=== PATIENT | female | born 1930 | race Asian ===

== ENCOUNTER 2016-09-14 08:35 | Inpatient (IN) | payer MEDICARE, MEDICAID ==
[~2016-09-14] VITALS: Ht 152.4 cm; Wt 45.4 kg
[~2016-09-14 08:35] MED LIST: UNOBMED
[2016-09-14 09:00] VITALS: BP 160/70
[2016-09-14] MEDS ORDERED: SERTRALINE HCL25 MG ORAL (09:59)
[2016-09-14] MEDS ORDERED: DONEPEZIL HCL5 M2 ORAL (09:59)
[2016-09-14 10:08] LABS: BASOPHILS % (AUTO) 0.6 % (0.0-2.0); LYMPHOCYTES % (AUTO) 19.8 % (20.0-45.0); MEAN CORPUSCULAR HEMOGLOBIN 32.1 PG (27.0-31.0); MEAN CORPUSCULAR HGB CONC 32.5 G/DL (32.0-36.0); MEAN CORPUSCULAR VOLUME 99 FL (80-99); MEAN PLATELET VOLUME 8.7 FL (6.5-10.1); MONOCYTES % (AUTO) 8.8 % (1.0-10.0); NEUTROPHILS % (AUTO) 68.8 % (45.0-75.0); PLATELET COUNT 179 K/UL (150-450); RED BLOOD COUNT 4.25 M/UL (4.20-5.40); RED CELL DISTRIBUTION WIDTH 12.4 % (11.6-14.8); WHITE BLOOD COUNT 5.9 K/UL (4.8-10.8)
[2016-09-14 10:17] LABS: ALANINE AMINOTRANSFERASE 17 U/L (3-33); ALBUMIN/GLOBULIN RATIO 1.1 (1.0-2.7); ANION GAP 14 (5-15); ASPARTATE AMINO TRANSFERASE 26 U/L (5-40); CALCIUM 9.7 mg/dL (8.6-10.2); CARBON DIOXIDE 25 mEQ/L (20-30); CHLORIDE 102 mEQ/L (98-107); CREATININE 0.9 mg/dL (0.5-0.9); HEMOLYSIS 6; LIPASE 49 U/L (< 60); POTASSIUM 4.2 mEQ/L (3.4-4.9); SODIUM 141 mEQ/L (135-145); TOTAL PROTEIN 7.1 g/dL (6.6-8.7)
[2016-09-14 10:19] LABS: TROPONIN I < 0.30 ng/mL (<=0.30)
[2016-09-14 10:34] LABS: APPEARANCE,URINE CLEAR; KETONES,URINE NEGATIVE (NEGATIVE); LEUKOCYTE ESTERASE ,URINE 1+ (NEGATIVE); NITRITE,URINE NEGATIVE (NEGATIVE); PH,URINE 7 (4.5-8.0); PROTEIN,URINE NEGATIVE (NEGATIVE); UROBILINOGEN,URINE NORMAL MG/DL (0.0-1.0)
[2016-09-14 10:49] LABS: BACTERIA,URINE FEW /HPF; RBC,URINE 0-2 /HPF (0 - 2); SQUAMOUS EPITHELIAL CELL,UR FEW /LPF (NONE/OCC)
[2016-09-14 11:22] VITALS: BP 184/74
[2016-09-14 13:16] VITALS: BP 180/100
--- NOTE | 2016-09-14 14:46 | Emergency Room Report ---
History of Present Illness General Chief Complaint: Diarrhea Source: Patient Present Illness HPI 86-year-old female presents ED for evaluation. Daughter at bedside states that the last 2 days patient been having vomiting and diarrhea. States that patient has poor appetite and feels weak. Denies any fevers or chills. Denies any abdominal pain. Denies any recent antibiotic use. Denies any recent travel. No other aggravating or relieving factors. Denies any other associated symptoms Allergies: Uncoded Allergies: SEASONAL (Allergy, Unknown, 04/19/14) Patient History Past Medical History: HTN Past Surgical History: none Pertinent Family History: none Social History: Denies: alcohol use, drug use, smoking Now: No Immunizations: UTD Reviewed Nursing Documentation: PMH: Agreed, PSxH: Agreed Nursing Documentation-PMH Past Medical History: No History, Except For Hx Hypertension: Yes Review of Systems All Other Systems: negative except mentioned in HPI Physical Exam Vital Signs Date Time Temp Pulse Resp B/P Pulse Ox O2 Delivery O2 Flow Rate FiO2 09/14/16 08:44 98.2 66 16 160/70 98 Room Air Sp02 EP Interpretation: reviewed, normal General Appearance: no apparent distress, alert, GCS 15, non-toxic, thin Head: normocephalic, atraumatic Eyes: bilateral eye PERRL, bilateral eye normal inspection ENT: hearing grossly normal, normal pharynx, no angioedema, normal voice Neck: full range of motion, supple/symm/no masses Respiratory: chest non-tender, lungs clear, normal breath sounds, speaking full sentences Cardiovascular #1: regular rate, rhythm, no edema Cardiovascular #2: 2+ carotid (R), 2+ carotid (L), 2+ radial (R), 2+ radial (L) , 2+ dorsalis pedis (R), 2+ dorsalis pedis (L) Gastrointestinal: normal bowel sounds, non tender, soft, non-distended, no guarding, no rebound Rectal: deferred Genitourinary: normal inspection, no CVA tenderness Musculoskeletal: back normal, gait/station normal, normal range of motion, non- tender Neurologic: alert, oriented x3, responsive, motor strength/tone normal, sensory intact, speech normal Psychiatric: judgement/insight normal, memory normal, mood/affect normal, no suicidal/homicidal ideation Reflexes: 3+ bicep (R), 3+ bicep (L), 3+ tricep (R), 3+ tricep (L), 3+ knee (R) , 3+ knee (L) Skin: normal color, no rash, warm/dry, well hydrated Lymphatic: no adenopathy Medical Decision Making Diagnostic Impression: Primary Impression: Gastroenteritis Additional Impression: Weakness ER Course Hospital Course 86-year-old female presenting to ED with generalized weakness, poor appetite, vomiting with diarrhea Differential diagnoses include: Pneumonia, UTI, sepsis, dehydration, WI/ unstable angina, failure to thrive Clinical course Patient placed on stretcher. 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 After initial history and physical, I ordered labs, IV fluids, UA Labs - no leukocytosis, hb/hct stable, electrolytes ok, UA negative Daughter is concerned because patient remains week with poor appetite with persistent diarrhea here in ER. C diff and stool culture sent Case discussed with Dr Pappas and they agreed to admit patient to their service for further care and support I feel this is a highly complex case requiring extensive working including EKG/ Rhythm strip, Xray/CT/US, Blood/urine lab work, repeat exams while in ED, and administration of strong opiates/narcotics for pain control, admission to hospital or close patient follow up. Diagnosis - gastroenteritis, weakness Patient admitted to floor in serious condition Labs Test 09/14/16 09:40 09/14/16 10:20 White Blood Count 5.9 K/UL (4.8-10.8) Red Blood Count 4.25 M/UL (4.20-5.40) Hemoglobin 13.7 G/DL (12.0-16.0) Hematocrit 42.0 % (37.0-47.0) Mean Corpuscular Volume 99 FL (80-99) Mean Corpuscular Hemoglobin 32.1 PG (27.0-31.0) Mean Corpuscular Hemoglobin Concent 32.5 G/DL (32.0-36.0) Red Cell Distribution Width 12.4 % (11.6-14.8) Platelet Count 179 K/UL (150-450) Mean Platelet Volume 8.7 FL (6.5-10.1) Neutrophils (%) (Auto) 68.8 % (45.0-75.0) Lymphocytes (%) (Auto) 19.8 % (20.0-45.0) Monocytes (%) (Auto) 8.8 % (1.0-10.0) Eosinophils (%) (Auto) 2.0 % (0.0-3.0) Basophils (%) (Auto) 0.6 % (0.0-2.0) Sodium Level 141 mEQ/L (135-145) Potassium Level 4.2 mEQ/L (3.4-4.9) Chloride Level 102 mEQ/L (98-107) Carbon Dioxide Level 25 mEQ/L (20-30) Anion Gap 14 (5-15) Blood Urea Nitrogen 26 mg/dL (7-23) Creatinine 0.9 mg/dL (0.5-0.9) Estimat Glomerular Filtration Rate mL/min (>60) Glucose Level 107 mg/dL (74-106) Calcium Level 9.7 mg/dL (8.6-10.2) Total Bilirubin 0.6 mg/dL (0.0-1.2) Aspartate Amino Transf (AST/SGOT) 26 U/L (5-40) Alanine Aminotransferase (ALT/SGPT) 17 U/L (3-33) Alkaline Phosphatase 73 U/L (35-104) Troponin I < 0.30 ng/mL (<=0.30) Total Protein 7.1 g/dL (6.6-8.7) Albumin 3.8 g/dL (3.5-5.2) Globulin 3.3 g/dL Albumin/Globulin Ratio 1.1 (1.0-2.7) Lipase 49 U/L (< 60) Urine Color Pale yellow Urine Appearance Clear Urine pH 7 (4.5-8.0) Urine Specific [place] 1.015 (1.005-1.035) Urine Protein Negative (NEGATIVE) Urine Glucose (UA) Negative (NEGATIVE) Urine Ketones Negative (NEGATIVE) Urine Occult Blood Negative (NEGATIVE) Urine Nitrite Negative (NEGATIVE) Urine Bilirubin Negative (NEGATIVE) Urine Urobilinogen Normal MG/DL (0.0-1.0) Urine Leukocyte Esterase 1+ (NEGATIVE) Urine RBC 0-2 /HPF (0 - 2) Urine WBC 2-4 /HPF (0 - 2) Urine Squamous Epithelial Cells Few /LPF (NONE/OCC) Urine Bacteria Few /HPF (NONE) Last Vital Signs Date Time Temp Pulse Resp B/P Pulse Ox O2 Delivery O2 Flow Rate FiO2 09/14/16 13:29 180/100 4/9/17 13:16 56 16 98 Room Air 09/14/16 08:44 98.2 Status: unchanged Disposition: ADMITTED INPATIENT Condition: Serious Referrals: NON PHYSICIAN (PCP) RIGO SUAREZ M.D. Sep 14, 2016 14:46
[2016-09-14 14:53] VITALS: BP 139/68
[2016-09-14 16:28] VITALS: BP 130/61
[2016-09-14 20:00] VITALS: BP 130/58
[2016-09-14] MEDS ORDERED: LATANOPROST2.5 ML BOTH EYES (22:36)
--- NOTE | 2016-09-14 23:57 | Internal Med Progress Note ---
Subjective Physician Name Percy Herndon Attending Physician Percy Herndon M.D. Current Medications Medications (Trade) Dose Ordered Sig/Armando Route PRN Reason Start Time Stop Time Status Last Admin Dose Admin Acetaminophen (Tylenol) 650 mg Q4H PRN ORAL Mild Pain (Pain Scale 1-3) 09/14/16 12:30 10/14/16 12:29 Dextrose (Dextrose 50%) STAT PRN IV Hypoglycemia 09/14/16 12:30 10/14/16 12:29 Donepezil HCl (Aricept) 5 mg DAILY ORAL 09/15/16 09:00 10/15/16 08:59 Ondansetron HCl (Zofran) 4 mg Q6H PRN IVP Nausea & Vomiting 09/14/16 12:30 10/14/16 12:29 Sertraline HCl (Zoloft) 25 mg DAILY ORAL 09/15/16 09:00 10/15/16 08:59 Sodium Chloride (Sodium Chloride 1000ml bag) 1,000 ml @ 75 mls/hr [id number] IVLG 09/14/16 14:00 10/14/16 13:59 09/14/16 17:01 Allergies: Uncoded Allergies: SEASONAL (Allergy, Unknown, 04/19/14) Objective Last Vital Signs Date Time Temp Pulse Resp B/P Pulse Ox O2 Delivery O2 Flow Rate FiO2 09/14/16 20:00 97.1 57 19 130/58 100 Room Air Laboratory Tests Test 09/14/16 09:40 09/14/16 10:20 White Blood Count 5.9 K/UL (4.8-10.8) Red Blood Count 4.25 M/UL (4.20-5.40) Hemoglobin 13.7 G/DL (12.0-16.0) Hematocrit 42.0 % (37.0-47.0) Mean Corpuscular Volume 99 FL (80-99) Mean Corpuscular Hemoglobin 32.1 PG (27.0-31.0) H Mean Corpuscular Hemoglobin Concent 32.5 G/DL (32.0-36.0) Red Cell Distribution Width 12.4 % (11.6-14.8) Platelet Count 179 K/UL (150-450) Mean Platelet Volume 8.7 FL (6.5-10.1) Neutrophils (%) (Auto) 68.8 % (45.0-75.0) Lymphocytes (%) (Auto) 19.8 % (20.0-45.0) L Monocytes (%) (Auto) 8.8 % (1.0-10.0) Eosinophils (%) (Auto) 2.0 % (0.0-3.0) Basophils (%) (Auto) 0.6 % (0.0-2.0) Sodium Level 141 mEQ/L (135-145) Potassium Level 4.2 mEQ/L (3.4-4.9) Chloride Level 102 mEQ/L (98-107) Carbon Dioxide Level 25 mEQ/L (20-30) Anion Gap 14 (5-15) Blood Urea Nitrogen 26 mg/dL (7-23) H Creatinine 0.9 mg/dL (0.5-0.9) Estimat Glomerular Filtration Rate mL/min (>60) Glucose Level 107 mg/dL (74-106) H Calcium Level 9.7 mg/dL (8.6-10.2) Total Bilirubin 0.6 mg/dL (0.0-1.2) Aspartate Amino Transf (AST/SGOT) 26 U/L (5-40) Alanine Aminotransferase (ALT/SGPT) 17 U/L (3-33) Alkaline Phosphatase 73 U/L (35-104) Troponin I < 0.30 ng/mL (<=0.30) Total Protein 7.1 g/dL (6.6-8.7) Albumin 3.8 g/dL (3.5-5.2) Globulin 3.3 g/dL Albumin/Globulin Ratio 1.1 (1.0-2.7) Lipase 49 U/L (< 60) Urine Color Pale yellow Urine Appearance Clear Urine pH 7 (4.5-8.0) Urine Specific [place] 1.015 (1.005-1.035) Urine Protein Negative (NEGATIVE) Urine Glucose (UA) Negative (NEGATIVE) Urine Ketones Negative (NEGATIVE) Urine Occult Blood Negative (NEGATIVE) Urine Nitrite Negative (NEGATIVE) Urine Bilirubin Negative (NEGATIVE) Urine Urobilinogen Normal MG/DL (0.0-1.0) Urine Leukocyte Esterase 1+ (NEGATIVE) H Urine RBC 0-2 /HPF (0 - 2) Urine WBC 2-4 /HPF (0 - 2) Urine Squamous Epithelial Cells Few /LPF (NONE/OCC) Urine Bacteria Few /HPF (NONE) PERCY HERNDON M.D. Sep 14, 2016 23:57
[2016-09-15] VITALS: BP 113/55
--- NOTE | 2016-09-15 02:46 | History & Physical ---
History and Physical History & Physicial H&P dictated [id number] AMANDA HERNDON M.D. Sep 15, 2016 02:46
[2016-09-15 03:55] VITALS: BP 136/59
--- NOTE | 2016-09-15 07:09 | History and Physical Report ---
DATE OF ADMISSION: 09/14/2016 HISTORY OF PRESENT ILLNESS: This is an 86-year-old [place] Sor[place] female, who presents to the emergency room with worsening diarrhea. She states that she has nausea and vomiting. She has been become more weak. She has poor appetite and had 26 pounds weight loss that was unintentional over the last two years. She is very dehydrated and not eating or drinking much. She reports very loose diarrhea. She has a history of colon cancer status post colectomy after which she had some diarrhea. PAST MEDICAL HISTORY: Includes hypertension and colon cancer status post colectomy. PAST SURGICAL HISTORY: Colectomy for colon cancer. ALLERGIES: None. MEDICATIONS: Reviewed in [employer]. SOCIAL HISTORY: The patient does not drink, smoke alcohol, or use any drugs. FAMILY HISTORY: Noncontributory. REVIEW OF SYSTEMS: A 12-point review of systems is negative except for pertinent positives as mentioned above. PHYSICAL EXAMINATION: VITAL SIGNS: Temperature 98.2 degrees, pulse 66, respiratory rate 16, blood pressure 160/70, and O2 saturation 98%. GENERAL: The patient is in no acute distress. The patient is pleasant and [place] Sor[place] speaking. HEENT: Normocephalic/atraumatic. NECK: Supple. No JVD. LUNGS: Clear to auscultation bilaterally. No crackles, rhonchi, wheeze, or rales. CARDIOVASCULAR: Regular rate and rhythm. Normal S1 and S2. ABDOMEN: Soft, nontender, and nondistended. There is surgical scar seen from previous colectomy. EXTREMITIES: No clubbing, cyanosis, or edema. PSYCHIATRIC: Appropriate mood and affect. NEUROLOGICAL: The patient can move all extremities. No weakness. On my exam, however, she has slight movement. LABORATORY DATA: CBC, white count 5.9, hemoglobin 13.7, and platelet count 179,000. BMP, sodium 141, potassium 4.3, chloride 102, CO2 25, BUN 17, and creatinine 0.9. Glucose was 105. LFTs are within normal limits. UA is negative. ASSESSMENT: 1. Chronic diarrhea. 2. Failure to thrive with weight loss-rule out recurrence of cancer. 3. History of colon cancer status post colectomy. 4. Fatigue and weakness. 5. Dehydration. PLAN: 1. Admit the patient to Med/Surg. 2. GI consult in the morning. 3. IV fluids. 4. Blood culture, O&P, and C. diff. 5. CT of the abdomen and pelvis with contrast. Percy Pappas MD DR: CHRISTIANO JOB#: [id number] CC:
[2016-09-15 07:45] VITALS: BP 163/71
[2016-09-15 07:45] LABS: BASOPHILS % (AUTO) 0.9 % (0.0-2.0); EOSINOPHILS % (AUTO) 2.1 % (0.0-3.0); LYMPHOCYTES % (AUTO) 28.2 % (20.0-45.0); MEAN CORPUSCULAR HEMOGLOBIN 31.7 PG (27.0-31.0); MEAN CORPUSCULAR HGB CONC 31.8 G/DL (32.0-36.0); MEAN CORPUSCULAR VOLUME 100 FL (80-99); MEAN PLATELET VOLUME 8.4 FL (6.5-10.1); MONOCYTES % (AUTO) 7.9 % (1.0-10.0); NEUTROPHILS % (AUTO) 60.9 % (45.0-75.0); PLATELET COUNT 156 K/UL (150-450); RED BLOOD COUNT 3.83 M/UL (4.20-5.40); RED CELL DISTRIBUTION WIDTH 12.3 % (11.6-14.8)
[2016-09-15 08:25] LABS: ANION GAP 14 (5-15); CALCIUM 8.5 mg/dL (8.6-10.2); CARBON DIOXIDE 23 mEQ/L (20-30); CHLORIDE 105 mEQ/L (98-107); CREATININE 0.8 mg/dL (0.5-0.9); HEMOLYSIS 2; SODIUM 142 mEQ/L (135-145)
[2016-09-15] MEDS: Sertraline 50mg tab ORAL SCH (09:00)
[2016-09-15] MEDS: Donepezil 5mg Tab ORAL SCH (09:00)
[2016-09-15] MEDS: metroNIDAZOLE 500mg tab ORAL SCH ×2 (11:20→21:48)
[2016-09-15] MEDS: cefTRIAXone 1 GM in NS 55 ML IVPB SCH (11:23)
[2016-09-15 11:48] VITALS: BP 162/72
--- NOTE | 2016-09-15 11:48 | Internal Med Progress Note ---
Subjective Date of Service: Sep 15, 2016 Physician Name Javier Zamarripa Attending Physician Percy Pappas M.D. Current Medications Medications (Trade) Dose Ordered Sig/Armando Route PRN Reason Start Time Stop Time Status Last Admin Dose Admin Acetaminophen (Tylenol) 650 mg Q4H PRN ORAL Mild Pain (Pain Scale 1-3) 09/14/16 12:30 10/14/16 12:29 Ceftriaxone Sodium/Sodium Chloride (Rocephin/Sodium Chloride) 55 ml @ 110 mls/hr Q24H IVPB 09/15/16 10:00 09/22/16 09:59 Dextrose (Dextrose 50%) STAT PRN IV Hypoglycemia 09/14/16 12:30 10/14/16 12:29 Donepezil HCl (Aricept) 5 mg DAILY ORAL 09/15/16 09:00 10/15/16 08:59 Metronidazole (Flagyl) 500 mg Q8HR ORAL 09/15/16 10:00 09/22/16 09:59 Ondansetron HCl (Zofran) 4 mg Q6H PRN IVP Nausea & Vomiting 09/14/16 12:30 10/14/16 12:29 Sertraline HCl 25 mg 25 mg DAILY ORAL 09/15/16 09:00 10/15/16 08:59 Sodium Chloride (Sodium Chloride 1000ml bag) 1,000 ml @ 75 mls/hr [id number] IVLG 09/14/16 14:00 10/14/16 13:59 09/15/16 03:30 Allergies: Uncoded Allergies: SEASONAL (Allergy, Unknown, 04/19/14) ROS Limited/Unobtainable: No Constitutional: Reports: no symptoms HEENT: Reports: no symptoms Cardiovascular: Reports: no symptoms Respiratory: Reports: no symptoms Gastrointestinal/Abdominal: Reports: abdominal pain, diarrhea, nausea, vomiting Genitourinary: Reports: no symptoms Neurologic/Psychiatric: Reports: no symptoms Subjective 86 YO F admitted with unexplained weight loss, nausea, vomiting and diarrhea. Await CT abdomen/pelvis. Cover for Int Med-Dr Pappas. Objective Last Vital Signs Date Time Temp Pulse Resp B/P Pulse Ox O2 Delivery O2 Flow Rate FiO2 09/15/16 07:45 97.2 55 18 163/71 97 Room Air Laboratory Tests Test 09/15/16 05:50 White Blood Count 5.0 K/UL (4.8-10.8) Red Blood Count 3.83 M/UL (4.20-5.40) L Hemoglobin 12.2 G/DL (12.0-16.0) Hematocrit 38.2 % (37.0-47.0) Mean Corpuscular Volume 100 FL (80-99) H Mean Corpuscular Hemoglobin 31.7 PG (27.0-31.0) H Mean Corpuscular Hemoglobin Concent 31.8 G/DL (32.0-36.0) L Red Cell Distribution Width 12.3 % (11.6-14.8) Platelet Count 156 K/UL (150-450) Mean Platelet Volume 8.4 FL (6.5-10.1) Neutrophils (%) (Auto) 60.9 % (45.0-75.0) Lymphocytes (%) (Auto) 28.2 % (20.0-45.0) Monocytes (%) (Auto) 7.9 % (1.0-10.0) Eosinophils (%) (Auto) 2.1 % (0.0-3.0) Basophils (%) (Auto) 0.9 % (0.0-2.0) Sodium Level 142 mEQ/L (135-145) Potassium Level 4.0 mEQ/L (3.4-4.9) Chloride Level 105 mEQ/L (98-107) Carbon Dioxide Level 23 mEQ/L (20-30) Anion Gap 14 (5-15) Blood Urea Nitrogen 20 mg/dL (7-23) Creatinine 0.8 mg/dL (0.5-0.9) Estimat Glomerular Filtration Rate mL/min (>60) Glucose Level 92 mg/dL (74-106) Calcium Level 8.5 mg/dL (8.6-10.2) L Microbiology Date/Time Source Procedure Growth Status 09/14/16 21:00 Stool Clostridium difficile Toxin Assay - Final Complete Intake and Output 09/14/16 09/15/16 19:00 07:00 Intake Total 150 ml 825 ml Balance 150 ml 825 ml Intake Oral 0 ml IV Total 150 ml 825 ml # Voids 1 4 # Bowel Movements 1 Objective General: alert, cooperative, no distress, appears stated age Head: normocephalic, without obvious abnormality, atraumatic Eyes: conjunctivae/corneas clear. PERRL, EOM's intact Throat: lips, mucosa, and tongue normal. MMM Neck: supple, symmetrical, trachea midline, and no JVD Lungs: clear to auscultation bilaterally Heart: regular rate and rhythm, S1, S2 normal, no murmur, click, rub or gallop Abdomen: soft, non-tender, non-distended, bowel sounds normal; no masses or organomegaly Extremities: extremities normal, atraumatic, no cyanosis or edema Pulses: 2+ and symmetric Skin: skin color, texture, turgor normal; no rashes or lesions Neurologic: grossly normal, no focal deficits Assessment/Plan Problem List: (1) Fatigue (2) Dehydration (3) Weight loss (4) Poor appetite Assessment & Plan: Await nutrition consult. (5) Diarrhea (6) Nausea & vomiting Assessment & Plan: await GI consult. Cont zofran (7) Abdominal pain (8) Colon cancer Assessment & Plan: By History. Await CT abdomen/pelvis to rule out reoccurrence. Await GI consult for possible endoscopy and colonoscopy. Status: not improved JAVIER ZAMARRIPA Sep 15, 2016 11:48
--- NOTE | 2016-09-15 12:11 | Diagnostic Imaging Report ---
Indications: Abdominal pain, nausea vomiting, diarrhea, history of colon cancer Technique: Continuous helical CT imaging of the abdomen and pelvis was performed with automatic exposure control following administration of oral and intravenous nonionic iodine contrast, on a Siemens sensation [address] scanner. Axial, coronal, and sagittal images were reconstructed at 5 mm slice thickness. CTDI volume(s): 13 mGy Total DLP: 669 mGy-cm Findings: Comparison: 04/20/14 Oral contrast is passed throughout the gastrointestinal tract to the level of the rectum. Entire tract no distended. Right colon and perhaps portion of transverse colon absent. Site of enterocolonic anastomosis indeterminate. No obvious mural thickening, adjacent stranding, extraluminal gas or fluid collections. Right renal pelvis proximal ureter now mildly distended to the point where the ureter crosses under the right ovarian vein, thereafter not dilated. No associated stone or mass identified. Mild dilation in apparent mild urothelial thickening of the left renal collecting system and proximal ureter to level of lumbosacral junction again noted, also without obvious associated stone or mass. Left renal cortical atrophy with scarring, left renal cortical cyst, prominent arterial mural calcifications without obvious flow-limiting stenosis or occlusion, significant tortuosity of the abdominal aorta, fat containing paraumbilical hernia apparent mild thickening of urinary bladder wall again noted and unchanged. Remainder visualized abdominopelvic anatomy demonstrates no other obvious acute abnormality. Heart remains enlarged. Subsegmental atelectasis again noted and dependent portions of both lung bases. Degenerative changes again noted in lumbar, lower thoracic spine. IMPRESSION: No evidence of overt acute abdominopelvic disease, unchanged Interval mild distention of right renal pelvis and proximal ureter without obvious obstructive etiology. No evidence of associated acute inflammation. Correlate clinically. Persistent left renal collecting system and proximal ureteral dilation, urothelial thickening may be chronic inflammatory in nature. No evidence of acute obstruction. Additional chronic stable changes including prior partial colectomy, left renal cortical cyst, left renal atrophy and cortical scarring, arteriosclerosis, pulmonary bibasal subsegmental atelectasis Cardio megaly Degenerative spondylosis
[2016-09-15 16:00] VITALS: BP 146/64
--- NOTE | 2016-09-15 18:34 | General Progress Note ---
Assessment/Plan Assessment/Plan Assessment - Acute diarrhea, ? viral - Chronic multiple / soft BM - due to past colectomy - Anorexia - suspect due to combination of Dementia and Depression - Family wish to be conservative with w/u - no endoscopy at this time Recommendations - push po - hold off on EGD/Colon - consider changing Aricept/Zoloft to Remeron Thank you Goyo Prieto MD Subjective Allergies: Uncoded Allergies: SEASONAL (Allergy, Unknown, 04/19/14) Objective Last 24 Hour Vital Signs Date Time Temp Pulse Resp B/P Pulse Ox O2 Delivery O2 Flow Rate FiO2 09/15/16 16:00 97.4 59 18 146/64 96 Room Air 09/15/16 11:48 96.3 55 18 162/72 98 Room Air 09/15/16 07:45 97.2 55 18 163/71 97 Room Air 09/15/16 03:55 96.1 55 18 136/59 Room Air 09/15/16 00:00 96.7 47 18 113/55 91 Room Air 09/14/16 20:00 97.1 57 19 130/58 100 Room Air Intake and Output 09/14/16 09/15/16 19:00 07:00 Intake Total 150 ml 825 ml Balance 150 ml 825 ml Intake Oral 0 ml IV Total 150 ml 825 ml # Voids 1 4 # Bowel Movements 1 Laboratory Tests 09/15/16 05:50: White Blood Count 5.0, Red Blood Count 3.83L, Hemoglobin 12.2, Hematocrit 38.2, Mean Corpuscular Volume 100H, Mean Corpuscular Hemoglobin 31.7H, Mean Corpuscular Hemoglobin Concent 31.8L, Red Cell Distribution Width 12.3, Platelet Count 156, Mean Platelet Volume 8.4, Neutrophils (%) (Auto) 60.9, Lymphocytes (%) (Auto) 28.2, Monocytes (%) (Auto) 7.9, Eosinophils (%) (Auto) 2.1, Basophils (%) (Auto) 0.9, Sodium Level 142, Potassium Level 4.0, Chloride Level 105, Carbon Dioxide Level 23, Anion Gap 14, Blood Urea Nitrogen 20, Creatinine 0.8, Estimat Glomerular Filtration Rate , Glucose Level 92, Calcium Level 8.5L Height (Feet): 5 Height (Inches): 0.00 Weight (Pounds): 100 KHORRAMI,PAYMAN Sep 15, 2016 18:34
[2016-09-15 20:00] VITALS: BP 143/58
[2016-09-16 00:54] VITALS: BP 162/82
--- NOTE | 2016-09-16 01:18 | Consultation ---
DATE OF CONSULTATION: 09/15/2016 GASTROENTEROLOGY CONSULTATION REPORT: CHIEF COMPLAINT: I was asked to see this patient by Dr. Javier Mark for evaluation of abdominal issues including anorexia, weight loss, and diarrhea. HISTORY OF PRESENT ILLNESS: The patient is an 86-year-old [place]ian woman with some degree of dementia and depression, who was accompanied by her daughter. She was brought to the hospital due to a two-day history of diarrhea. The patient had previous history of weight loss and has had lost many pounds. However, the daughter also states that the patient appears to be having dementia and depression as well. She was recently placed both on Aricept as well as Zoloft last week or so. The patient denies any nausea, vomiting, abdominal pain, or hematochezia. Her last colonoscopy was three years ago. She has had a subtotal colectomy in the 70s because of the colon cancer and since then has had multiple soft loose bowel movements on a long-term basis. However, for the past three days or so, the patient has had lucrecia diarrhea which is resolving today. Patient is admitted today per daughter. The daughter prefers the patient to have a more conservative approach. She declined any endoscopy or colonoscopy at this time due to the patient's underlying dementia. PAST MEDICAL HISTORY: History of colon cancer status post resection in the 70s, dementia, depression, and weight loss. MEDICATIONS: See chart for details. SOCIAL HISTORY: The patient lives in [facility] alone close to her daughter. She does not smoke or drink. FAMILY HISTORY: Noncontributory. REVIEW OF SYSTEMS: Otherwise negative. PHYSICAL EXAMINATION: GENERAL: The patient is a pleasant [place]ian woman, seen in her room, her daughter at bedside. HEENT: Normocephalic and atraumatic. Sclerae anicteric. Oropharynx clear. NECK: Supple. CHEST: Clear to auscultation. CARDIOVASCULAR: Regular rate and rhythm. ABDOMEN: Soft and nontender. Good bowel sounds. EXTREMITIES: No edema. NEUROLOGIC: Nonfocal. LABORATORY DATA: Noted. ASSESSMENT: This patient presents with somewhat acute diarrhea which appears to be resolving and may be a simple case of viral gastroenteritis. Her chronic or more frequent stools is likely a function of her colectomy and has been going on for decades. She does have some early dementia and depression which typically causes weight loss in this age category, medication like Remeron may help. Aricept occasionally caused nausea making her dementia worse and this should be kept in mind. This medication is continued. I mentioned my recommendation to the patient's daughter and she will continue as an outpatient. In the meantime, the patient's stool should be checked for culture and sent over occult blood. At this time, no endoscopy and colonoscopy is planned per daughter's wishes but can be reconsidered as an outpatient should the problems continue. RECOMMENDATIONS: Per above discussion and per orders written in the chart. Thank you for asking me to participate in the care of this patient. Goyo Prieto M.D. DR: Leighton JOB#: [id number] CC:
[2016-09-16 04:02] VITALS: BP 156/66
[2016-09-16] MEDS: metroNIDAZOLE 500mg tab ORAL SCH ×2 (05:53→13:36)
[2016-09-16 06:51] LABS: BASOPHILS % (AUTO) 0.8 % (0.0-2.0); EOSINOPHILS % (AUTO) 2.7 % (0.0-3.0); LYMPHOCYTES % (AUTO) 17.3 % (20.0-45.0); MEAN CORPUSCULAR HEMOGLOBIN 32.3 PG (27.0-31.0); MEAN CORPUSCULAR HGB CONC 32.4 G/DL (32.0-36.0); MEAN CORPUSCULAR VOLUME 100 FL (80-99); MONOCYTES % (AUTO) 7.1 % (1.0-10.0); NEUTROPHILS % (AUTO) 72.2 % (45.0-75.0); PLATELET COUNT 161 K/UL (150-450); RED BLOOD COUNT 3.89 M/UL (4.20-5.40); RED CELL DISTRIBUTION WIDTH 12.7 % (11.6-14.8); WHITE BLOOD COUNT 5.8 K/UL (4.8-10.8)
[2016-09-16 07:00] LABS: ANION GAP 12 (5-15); CALCIUM 8.9 mg/dL (8.6-10.2); CARBON DIOXIDE 24 mEQ/L (20-30); CHLORIDE 108 mEQ/L (98-107); CREATININE 0.7 mg/dL (0.5-0.9); HEMOLYSIS 5; POTASSIUM 3.7 mEQ/L (3.4-4.9); SODIUM 144 mEQ/L (135-145)
[2016-09-16 08:00] VITALS: BP 160/73
[2016-09-16] MEDS: Donepezil 5mg Tab ORAL SCH (08:00)
[2016-09-16] MEDS: Sertraline 50mg tab ORAL SCH (08:00)
[2016-09-16] MEDS: cefTRIAXone 1 GM in NS 55 ML IVPB SCH (11:04)
[2016-09-16 12:00] VITALS: BP 139/68
[2016-09-16 16:00] VITALS: BP 163/76
--- NOTE | 2016-09-16 22:25 | General Progress Note ---
Assessment/Plan Assessment/Plan Assessment - Acute diarrhea, ? viral - Chronic multiple / soft BM - due to past colectomy - Anorexia - suspect due to combination of Dementia and Depression - Family wish to be conservative with w/u - no endoscopy at this time Recommendations - push po - hold off on EGD/Colon - consider changing Aricept/Zoloft to Remeron - d/c planning Subjective Allergies: Uncoded Allergies: SEASONAL (Allergy, Unknown, 04/19/14) Subjective Seen earlier today d/w clinical staff anesthesiologist small loose BM eating well for d/c today Objective Last 24 Hour Vital Signs Date Time Temp Pulse Resp B/P Pulse Ox O2 Delivery O2 Flow Rate FiO2 09/16/16 16:00 98.4 61 18 163/76 97 Room Air 09/16/16 12:00 98.1 57 18 139/68 97 Room Air 09/16/16 08:00 98.1 56 18 160/73 95 Room Air 09/16/16 04:02 97.5 57 18 156/66 97 Room Air 09/16/16 00:54 97.9 67 18 162/82 97 Room Air Intake and Output 09/15/16 09/16/16 19:00 07:00 Intake Total 1065 ml 750 ml Balance 1065 ml 750 ml Intake Oral 240 ml IV Total 825 ml 750 ml # Voids 4 # Bowel Movements 3 1 Laboratory Tests 09/16/16 05:10: White Blood Count 5.8, Red Blood Count 3.89L, Hemoglobin 12.6, Hematocrit 38.7, Mean Corpuscular Volume 100H, Mean Corpuscular Hemoglobin 32.3H, Mean Corpuscular Hemoglobin Concent 32.4, Red Cell Distribution Width 12.7, Platelet Count 161, Mean Platelet Volume 8.0, Neutrophils (%) (Auto) 72.2, Lymphocytes (% ) (Auto) 17.3L, Monocytes (%) (Auto) 7.1, Eosinophils (%) (Auto) 2.7, Basophils (%) (Auto) 0.8, Sodium Level 144, Potassium Level 3.7, Chloride Level 108H, Carbon Dioxide Level 24, Anion Gap 12, Blood Urea Nitrogen 14, Creatinine 0.7, Estimat Glomerular Filtration Rate , Glucose Level 157H, Calcium Level 8.9 Height (Feet): 5 Height (Inches): 0.00 Weight (Pounds): 100 Objective WDWN NCAT supple CTA RRR abd soft ND NT no edema nonfocal ANETTE JORGENSEN Sep 16, 2016 22:25
--- NOTE | 2016-09-17 10:13 | Internal Med Progress Note ---
Subjective Date of Service: Sep 16, 2016 Physician Name Javier Zamarripa Attending Physician Percy Pappas M.D. Allergies: Uncoded Allergies: SEASONAL (Allergy, Unknown, 04/19/14) Subjective Late entry: Computer down 09/16/16. 86 YO F admitted with unexplained weight loss, nausea, vomiting and diarrhea. Await CT abdomen/pelvis. Cover for Int Med-Dr Pappas. Objective Last Vital Signs Date Time Temp Pulse Resp B/P Pulse Ox O2 Delivery O2 Flow Rate FiO2 09/16/16 16:00 98.4 61 18 163/76 97 Room Air Microbiology Date/Time Source Procedure Growth Status 09/14/16 21:00 Stool Clostridium difficile Toxin Assay - Final Complete Intake and Output 09/16/16 09/17/16 19:00 07:00 Intake Total 1005 ml Balance 1005 ml Intake Oral 480 ml IV Total 525 ml # Voids 2 # Bowel Movements 1 Objective General: alert, cooperative, no distress, appears stated age Head: normocephalic, without obvious abnormality, atraumatic Eyes: conjunctivae/corneas clear. PERRL, EOM's intact Throat: lips, mucosa, and tongue normal. MMM Neck: supple, symmetrical, trachea midline, and no JVD Lungs: clear to auscultation bilaterally Heart: regular rate and rhythm, S1, S2 normal, no murmur, click, rub or gallop Abdomen: soft, non-tender, non-distended, bowel sounds normal; no masses or organomegaly Extremities: extremities normal, atraumatic, no cyanosis or edema Pulses: 2+ and symmetric Skin: skin color, texture, turgor normal; no rashes or lesions Neurologic: grossly normal, no focal deficits Assessment/Plan Problem List: (1) Fatigue (2) Dehydration (3) Weight loss (4) Poor appetite Assessment & Plan: Await nutrition consult. (5) Diarrhea (6) Nausea & vomiting Assessment & Plan: await GI consult. Cont zofran (7) Abdominal pain (8) Colon cancer Assessment & Plan: By History. Await CT abdomen/pelvis to rule out reoccurrence. Await GI consult for possible endoscopy and colonoscopy. Assessment/Plan D/C home 09/16/16. Cipro 500 mg BID and Flagyl 500 mg TID for 5 days. Follow up primary care physician in 1 week. JAVIER ZAMARRIPA Sep 17, 2016 10:13
--- NOTE | 2016-09-17 19:30 | Discharge Summary ---
Discharge Summary Hospital Course Date of Admission Sep 14, 2016 at 11:50 Date of Discharge Sep 16, 2016 at 19:00 Admitting Diagnosis weakness, colitis LUCIE Jones is a 86 year old female who was admitted on Sep 14, 2016 at 11:50 for Weakness,Colitis Hospital Course [id number] Discharge Discharge Disposition Patient was discharged to Home (01) Discharge Diagnoses: Evy Gilbert NP Sep 17, 2016 19:30
--- NOTE | 2016-09-18 11:08 | Discharge Summary 2 SIG ---
DATE OF ADMISSION: 09/14/2016 DATE OF DISCHARGE: 09/16/2016 ATTENDING PHYSICIAN: Percy Pappas M.D. KIER OPERATOR: Goyo Prieto M.D. BRIEF HOSPITAL COURSE: The patient is an 86-year-old [place] female, who presented to the emergency room with worsening diarrhea. She accompanied with nausea and vomiting. The patient became more weak and has poor appetite and lost 36 pounds that was unintentional over the last two years. She was very dehydrated and has not been eating or drinking. She has a history of colon cancer, status post colectomy. She was admitted for further evaluation and hydration. CAT scan of the abdomen and pelvis showed no evidence of acute abdominopelvic disease. Dr. Prieto was consulted and the patient prefers to have a conservative approach. She declined endoscopy or colonoscopy due to the patient's underlying dementia. Symptoms resolved and could be a case of viral gastroenteritis. Anorexia was due to combination of dementia and depression. She was given ciprofloxacin and Flagyl and was discharged, a complete antibiotic treatment and follow up with primary care physician in a week. FINAL DIAGNOSES: 1. Nausea, vomiting, diarrhea, possibly secondary to acute gastroenteritis. 2. Dehydration. 3. Depression. 4. Colon cancer. 5. Weight loss with poor appetite with malnutrition. I have been assigned to dictate discharge summary on this account and I was not involved in the patient's management. Evy Gilbert N.P. DR: Felipe JOB#: [id number] CC: PRADEEP
== END 2016-09-16 19:00 | disposition home or self-care (01) | DRG 641 ==
LOC: EMR 09:16 → 4W 11:50 → EDBEDREQ 12:31
DX: E86.0 Dehydration (principal); K52.9 Noninfective gastroenteritis and colitis, unspecified; C79.9 Secondary malignant neoplasm of unspecified site; R63.0 Anorexia; R62.7 Adult failure to thrive; F03.90 Unspecified dementia, unspecified severity, without behavioral disturbance, psychotic disturbance, mood disturbance, and anxiety; Z68.1 Body mass index [BMI] 19.9 or less, adult; Z85.038 Personal history of other malignant neoplasm of large intestine; Z90.49 Acquired absence of other specified parts of digestive tract; F32.9 Major depressive disorder, single episode, unspecified; R53.83 Other fatigue
CPT/HCPCS: 36415; 74177; 80048; 80053; 81003; 83690; 84484; 85025; 87045; 87324